=== PATIENT | female | born 1950 | race Two or more races ===

== ENCOUNTER 2024-08-21 03:35 | Emergency (ER) | payer OTHER ==
[~2024-08-21] VITALS: Ht 157.5 cm; Wt 66.0 kg
[2024-08-21] MEDS: EPINEPHrine HCL 1 MG/1 ML AMP IM ONE (03:55)
[2024-08-21] MEDS: FAMOTIDINE (10MG/ML) 2ML VL IV ONE ×2 (03:55→04:08)
[2024-08-21] MEDS: DexAMETHasone SOD PHOS 10MG/1ML VIAL INJ IV ONE (03:55)
[2024-08-21] MEDS: ALBUTEROL SULF 2.5 MG/0.5ML(0.5%) NEB SOLN NEB STA (04:01)
[2024-08-21 04:07] VITALS: PULSE 79; RESP 11; O2SAT 100
[2024-08-21] MEDS: EPINEPHrine HCL 1 MG/1 ML AMP ONE (04:08)
[2024-08-21] MEDS: DexAMETHasone SOD PHOS 10MG/1ML VIAL INJ ONE (04:08)
[2024-08-21] MEDS: SODIUM CHLORIDE 0.9% 1,000 ML IV STA (04:09)
[2024-08-21] MEDS: diphenhdrAMINE HCL 50 MG/1 ML VL IV ONE (04:16)
[2024-08-21] MEDS: methylPREDNISolone SOD SUCC 125 MG/2 ML VL IV ONE (04:27)
[2024-08-21 04:31] LABS: Basophils # (auto) 0.1 10 ^3/uL (0-0.2); Basophils % (auto) 0.8 % (0.0-2.0); Eosinophils # (auto) 0.3 10 ^3/uL (0-0.8); Eosinophils % (auto) 3.1 % (0.0-7.0); Hematocrit 43.1 % (36.0-46.0); Hemoglobin 14.4 g/dL (12.2-16.2); Lymphocytes # (auto) 3.4 10 ^3/uL (0.4-5.4); Lymphocytes % (auto) 41.2 % (10.0-50.0); Mean Corpuscular Hemoglobin 29.9 pg (28.0-32.0); Mean Corpuscular Hgb Conc. 33.5 g/dL (32.0-36.0); Mean Corpuscular Volume 89.3 fL (80.0-100.0); Monocytes # (auto) 0.6 10 ^3/uL (0-1.3); Monocytes % (auto) 6.7 % (0.0-12.0); Neutrophils % (auto) 48.2 % (37.0-80.0); Nucleated Red Blood Cells % 0.1 %; Platelet Count (auto) 307 10^3/uL (140-450); Red Blood Cells 4.82 10^6/uL (4.0-5.20); Red Cell Distribution Width 14.4 % (11.8-14.3); White Blood Cell 8.4 10^3/uL (4.4-10.8)
[2024-08-21 04:50] LABS: Alanine Aminotransferase 16 U/L (7-40); Albumin 4.5 g/dL (3.2-4.8); Alkaline Phosphatase 81 U/L (46-116); Anion Gap 8 (5-15); Bilirubin, Total 0.5 mg/dL (0.2-1.0); Blood Urea Nitrogen 18 mg/dL (9-23); Calcium 10.2 mg/dL (8.7-10.4); Carbon Dioxide 27 mmol/L (20-31); Chloride 105 mmol/L (98-107); Potassium 4.2 mmol/L (3.5-5.1); Sodium 140 mmol/L (136-145); Total Protein 7.1 g/dL (5.7-8.2)
[2024-08-21 04:53] LABS: Aspartate Aminotransferase 11 U/L (13-40); Glucose 128 mg/dL (74-106)
[2024-08-21 07:51] VITALS: PULSE 96; RESP 20; O2SAT 94
[2024-08-21 08:00] VITALS: TEMP 97.4
--- NOTE | 2024-08-21 08:17 | ED.PDOC ---
History of Present Illness HPI Comments 73 f presents with swelling of lips, tongue throat, started last night, worsened upon awakening. She takes no medications at home. Has been having sx intermittently x 1 year. Took one benadryl PO prior to arrival ROS: + throat swelling, + SOB. Exam: GEN: NAD HEENT: Left upper lip swollen. Right tongue swollen. + Posterior pharyngeal edema. NCAT RESP: + muffled voice. No resp distress, no stridor. no wheeze Cardiac: RRR Chief Complaint: Allergic Reaction Time Seen by MD: 03:55 Allergies: Coded Allergies: NO KNOWN ALLERGIES (Unverified , 08/21/24) Mode of Arrival: Ambulatory Past Medical History PAST MEDICAL HISTORY: Denies Surgical History: Denies all surgeries W[employer]PERATIONS SUPERVISOR History: No Pertinent W[employer]PERATIONS SUPERVISOR History Family History Family History: Reviewed,noncontributory to illness, No family hx of Cancer, No family hx of DM, No family hx of Heart fatimah, No family hx of HTN, No family hx ofKidney fatimah, No family hx of Liver fatimah, No family hx of Lung fatimah, No family hx of Stroke Social History Smoker: Non-Smoker Alcohol: Denies ETOH Use Drugs: Denies Drug Use Was a procedure done? Was a procedure done?: No Differential Dx Considerations may include: Allergic reaction, Angio edema. X-Ray, Labs, Meds, VS Vital Signs Date Time Temp Pulse Resp B/P (MAP) Pulse Ox O2 Delivery O2 Flow Rate FiO2 08/21/24 09:29 89 08/21/24 08:00 97.4 96 20 137/68 (91) 94 97.4 08/21/24 07:51 96 20 94 Room Air* 0 21 08/21/24 05:00 72 17 133/62 (85) 95 08/21/24 04:07 98.5 79 11 134/67 (89) 100 98.5 08/21/24 04:07 79 11 100 Room Air* 0 21 08/21/24 04:01 18 97 Room Air* 0 21 08/21/24 03:38 18 94 Room Air* 0 21 08/21/24 03:38 96.7 89 18 156/76 (102) 94 96.7 Lab Test 08/21/24 04:15 Range/Units White Blood Count 8.4 4.4-10.8 10^3/uL Red Blood Count 4.82 4.0-5.20 10^6/uL Hemoglobin 14.4 12.2-16.2 g/dL Hematocrit 43.1 36.0-46.0 % Mean Corpuscular Volume 89.3 80.0-100.0 fL Mean Corpuscular Hemoglobin 29.9 28.0-32.0 pg Mean Corpuscular Hemoglobin Concent 33.5 32.0-36.0 g/dL Red Cell Distribution Width 14.4 H 11.8-14.3 % Platelet Count 307 140-450 10^3/uL Mean Platelet Volume 8.0 6.9-10.8 fL Neutrophils (%) (Auto) 48.2 37.0-80.0 % Lymphocytes (%) (Auto) 41.2 10.0-50.0 % Monocytes (%) (Auto) 6.7 0.0-12.0 % Eosinophils (%) (Auto) 3.1 0.0-7.0 % Basophils (%) (Auto) 0.8 0.0-2.0 % Neutrophils # (Auto) 4.0 1.6-8.6 10 ^3/uL Lymphocytes # (Auto) 3.4 0.4-5.4 10 ^3/uL Monocytes # (Auto) 0.6 0-1.3 10 ^3/uL Eosinophils # (Auto) 0.3 0-0.8 10 ^3/uL Basophils # (Auto) 0.1 0-0.2 10 ^3/uL Nucleated Red Blood Cells 0.1 % Sodium Level 140 136-145 mmol/L Potassium Level 4.2 3.5-5.1 mmol/L Chloride Level 105 98-107 mmol/L Carbon Dioxide Level 27 20-31 mmol/L Anion Gap 8 5-15 Blood Urea Nitrogen 18 9-23 mg/dL Creatinine 0.90 0.550-1.02 mg/dL Glomerular Filtration Rate Calc 68 >90 mL/min BUN/Creatinine Ratio 20.0 10.0-20.0 Serum Glucose 128 H 74-106 mg/dL Calcium Level 10.2 8.7-10.4 mg/dL Total Bilirubin 0.5 0.2-1.0 mg/dL Aspartate Amino Transferase (AST) 11 L 13-40 U/L Alanine Aminotransferase (ALT) 16 7-40 U/L Alkaline Phosphatase 81 46-116 U/L Total Protein 7.1 5.7-8.2 g/dL Albumin 4.5 3.2-4.8 g/dL Complement C4 Pending Current Medications Medications (Trade) Dose Ordered Sig/Saran Route Start Time Stop Time Status Last Admin Sodium Chloride 1,000 ml @ 1,000 mls/hr Q1H STAT IV 08/21/24 03:59 08/21/24 04:58 DC 08/21/24 04:09 Albuterol (Ventolin Medneb) 2.5 mg STAT STAT NEB 08/21/24 03:59 08/21/24 04:00 DC 08/21/24 04:01 Diphenhydramine HCl (Benadryl Injection) 25 mg ONCE ONCE IV 08/21/24 04:15 08/21/24 04:16 DC 08/21/24 04:16 Famotidine (Pepcid Injection) 20 mg ONCE ONCE IV 08/21/24 04:15 08/21/24 04:16 DC 08/21/24 03:55 Epinephrine HCl 0.3 mg ONCE ONCE IM 08/21/24 04:15 08/21/24 04:16 DC 08/21/24 03:55 Dexamethasone Sodium Phosphate (Decadron Injection) 10 mg ONCE ONCE IV 08/21/24 04:15 08/21/24 04:16 DC 08/21/24 03:55 Methylprednisolone Sodium Succinate (Solu Medrol) 75 mg ONCE ONCE IV 08/21/24 04:15 08/21/24 04:16 DC 08/21/24 04:27 Patient alert. Complaining of having allergic reaction. Had taken Benadryl prior to coming. Vitals stable. I examined the patient at 10:36 a.m.. She is perfectly well. Insists on going home. Physical examination pristine. Was given prescription of prednisone. No sign of any distress. No swelling. No shortness a breath. No chest pain. Was told to follow up with her primary care physician. Was told to come back if there is any problem. Time of 1ST Reevaluation: 10:36 Reevaluation 1ST: Improved Patient Education/Counseling: Diagnosis, Treatment, Prognosis, Need For Follow Up Family Education/Counseling: Need For Follow Up Departure 1 Departure Time of Disposition: 06:00 Impression: Primary Impression: Allergic reaction Qualified Codes: T78.40XA - Allergy, unspecified, initial encounter Disposition: HOME / SELF CARE / HOMELESS Condition: Good e-Prescriptions Pantoprazole Sodium Sesquihydr (Protonix) 40 Mg Tab 40 MG PO DAILY for 5 Days, #5 TAB Prov: SHADY MAYO MD 08/21/24 Prednisone (Prednisone) 10 Mg Tab 10 MG PO DAILY for 5 Days, #5 MG Prov: SHADY MAYO MD 08/21/24 Discharged With: Self Comments 73 year old female with possible allergic reaction vs angioedema vs hereditary angioedema/C1 esterase deficiency. Treated with Epi, Steroids, antihistamine in the ED. Recommended patient admission for further observation. Discussed risk of worsening swelling/need for intubation. She declines admission. She agrees to continued ED observation. Critical Care Note Critical Care Time?: No Stability Stability form required: No Heart Score Heart Score: Heart Score Response (Comments) Value History N/A 0 EKG N/A 0 Age N/A 0 Risk Factors N/A 0 Troponin N/A 0 Total 0 YEIMI TAM MD August 21, 2024 08:17 SHADY MAYO MD August 21, 2024 10:38
--- NOTE | 2024-08-21 09:06 | DVH ---
XY CHEST PORTABLE, HISTORY: CP COMPARISON: None None TECHNICAL DATA: 1 view of the chest was obtained. FINDINGS: Lines and tubes: None Cardiomediastinal silhouette: normal Pulmonary vasculature: normal Lung expansion: normal Lung airspace: normal Lung interstitium: normal Pleura: normal Pneumothorax: no Bones: Unremarkable Other: no IMPRESSION: No acute intrathoracic abnormality.
[2024-08-21] MEDS ORDERED: PRED10TA PO (10:38)
[2024-08-21] MEDS ORDERED: PANT40TA2 PO (10:38)
[2024-08-21 11:00] VITALS: BP 125/69; PULSE 96; RESP 16; O2SAT 94
== END 2024-08-21 11:06 | disposition home or self-care (01) ==
LOC: ER 03:35
DX: T78.40XA Allergy, unspecified, initial encounter (principal); Z79.899 Other long term (current) drug therapy; X58.XXXA Exposure to other specified factors, initial encounter
CPT/HCPCS: 36415; 71045; 80053; 85025; 86160; 86850; 86900; 86901; 94640; 96361; 96372; 96374; 96375; 99285; J0171; J1100; J1200; J2919; J3490; J7030